=== PATIENT | male | born 1980 | race Caucasian/White ===

== ENCOUNTER 2020-02-09 21:06 | Emergency (ER) | payer OTHER ==
[~2020-02-09] VITALS: Ht 162.6 cm; Wt 77.1 kg
[2020-02-09 22:07] LABS: ABSOLUTE NEUTROPHILS 4.2 thou/uL (1.4-8.2); BASOPHILS 1.2 % (0.0-2.0); EOSINOPHILS 4.5 % (0.0-3.0); HEMATOCRIT 39.8 % (42.0-52.0); HEMOGLOBIN 12.9 gm/dL (14.0-18.0); LYMPHOCYTES 32.9 % (24.0-44.0); MCH 23.6 pg (26.0-34.0); MCHC 32.3 g/dL (28.0-37.0); MONOCYTES 6.8 % (1.0-8.0); PLATELET COUNT 231 thou/uL (150-400); POLYS 54.6 % (36.0-66.0); RBC 5.45 mil/uL (4.50-6.00); RDW 18.4 % (10.5-14.5); WBC 7.8 thou/uL (4.0-11.0)
[2020-02-09 22:11] LABS: CALCIUM 8.9 mg/dL (8.5-10.1); POTASSIUM 3.7 mmol/L (3.5-5.1)
[2020-02-09 22:17] LABS: ALBUMIN 3.6 g/dL (3.4-5.0); TOTAL BILIRUBIN 0.2 mg/dL (<0.1-1.0); TOTAL PROTEIN 7.2 g/dL (6.4-8.2)
[2020-02-09] MEDS ORDERED: NORCO 5-325 TA1 EAC1 PO (22:30)
[2020-02-09] MEDS ORDERED: KEFLEX500 M1 PO (22:30)
[2020-02-09] MEDS ORDERED: DOXYCYCLINE 10100 MG PO (22:30)
[2020-02-09] MEDS ORDERED: ONDANSETRON HCL4 M2 PO (22:30)
[2020-02-09 22:31] LABS: ANISOCYTOSIS 2+; HYPOCHROMASIA SLIGHT; LARGE PLATELETS RARE; MICROCYTES 1+; POLYCHROMASIA OCCASIONAL
[2020-02-09 22:46] VITALS: BP 142/88
== END 2020-02-09 22:40 | disposition home or self-care (01) ==
LOC: ER 21:06
PROVIDERS: Physician Assistant
DX: L03.114 Cellulitis of left upper limb (principal); F17.210 Nicotine dependence, cigarettes, uncomplicated